=== PATIENT | female | born 1940 ===

== ENCOUNTER 2020-03-24 12:59 | Outpatient (CLI) | payer MEDICARE ==
[~2020-03-24] VITALS: Ht 157.5 cm; Wt 88.5 kg
[2020-03-24 13:17] VITALS: BP 133/42
--- NOTE | 2020-03-24 17:45 | Consultation ---
DATE OF CONSULTATION: 03/24/2020 GASTROLOGY CONSULTATION CHIEF COMPLAINT: Questionable esophageal lesion, submucosal lesion or lesion in the esophagus, referred for EUS. PAST MEDICAL HISTORY: 1. Diabetes. 2. GERD. 3. Hypertension. 4. CHF. 5. Hypercholesterolemia. PAST SURGICAL HISTORY: None. MEDICATIONS: See medication reconciliation list. SOCIAL HISTORY: The patient denies any tobacco, alcohol, or drug abuse. FAMILY HISTORY: Noncontributory. ALLERGIES: No known allergies. REVIEW OF SYSTEMS: Positive for weight loss and GERD. PHYSICAL EXAMINATION: VITAL SIGNS: Temperature 97.4, blood pressure is stable, pulse 67, respirations 20. Height is 5 feet 2 inches. Weight is 195. HEENT: Normocephalic, atraumatic. Sclerae anicteric. NECK: Supple. No obvious lymphadenopathy. CARDIOVASCULAR: Regular rate and rhythm. Plus S1-S2. LUNGS: Clear to auscultation bilaterally. ABDOMEN: Positive bowel sounds. Soft and nontender. No rebound. No guarding. No peritoneal sign. EXTREMITIES: No cyanosis, no clubbing, no edema. ASSESSMENT/PLAN: An 80-year-old female who had endoscopy and colonoscopy by Dr. Caba. Apparently, there was something in the esophagus. We do not have the records. The patient was referred for endoscopic ultrasound. Plan is to obtain records from Dr. Caba's office, schedule for EUS when authorization is obtained. Jacob Salas M.D. DR: KARTHIK JOB#: [id number] CC:
[2020-03-25] MEDS ORDERED: OMEPRAZOLE20 M2 ORAL (07:49)
[2020-03-25] MEDS ORDERED: AMLODIPINE BESY10 MG ORAL (07:49)
[2020-03-25] MEDS ORDERED: FERROUS SULFAT325 MG ORAL (07:49)
[2020-03-25] MEDS ORDERED: VITAMIN D PO (07:49)
[2020-03-25] MEDS ORDERED: ASPIRIN EC81 MG ORAL (07:49)
[2020-03-25] MEDS ORDERED: NOVOLIN 70100 UNIT/2 SQ (07:49)
[2020-03-25] MEDS ORDERED: METFORMIN HCL500 M1 ORAL (07:49)
[2020-03-25] MEDS ORDERED: FUROSEMIDE40 MG ORAL (07:49)
[2020-03-25] MEDS ORDERED: BENAZEPRIL HCL40 MG ORAL (07:49)
[2020-03-25] MEDS ORDERED: ATORVASTATIN CA40 MG ORAL (07:49)
== END 2020-03-24 14:59 | disposition home or self-care (01) ==
LOC: PAN 12:59
DX: K21.9 Gastro-esophageal reflux disease without esophagitis (principal); R63.4 Abnormal weight loss; E11.9 Type 2 diabetes mellitus without complications; I11.0 Hypertensive heart disease with heart failure; I50.9 Heart failure, unspecified; E78.00 Pure hypercholesterolemia, unspecified
CPT/HCPCS: G0463